=== PATIENT | female | born 1990 | race Caucasian/White ===

== ENCOUNTER 2018-10-09 19:16 | Emergency (ER) | payer BC ==
[~2018-10-09 19:16] MED LIST: Iopamidol 370 76% 100 ML VIAL ONE
[2018-10-09 19:48] LABS: #Eosinphils 0.2 thou/uL (0.0-0.7); #Lymphocytes 2.9 thou/uL (1.20-3.40); #Monocytes 1.3 thou/uL (0.11-0.59); #Neutrophils 14.2 thou/uL (1.40-6.50); %Basophils 0.2 % (0.0-1.0); %Eosinophils 1.2 % (0.0-10.0); %Lymphocytes 15.7 % (21.0-51.0); %Monocytes 6.9 % (0.0-10.0); Hemoglobin 15.6 g/dL (12.0-16.0); Mean Corpuscular HGB CONC 33.5 g/dL (32.0-36.0); Mean Corpuscular Hemoglobin 30.4 pg (27.0-31.0); Mean Corpuscular Volume 90.8 fL (78.0-98.0); Mean Platelet Volume 7.7 fL (7.4-10.4); Platelet Count 328 thou/uL (130-400); RBC Distribution Width 11.5 % (11.5-14.5); Red Blood Cell (RBC) Count 5.12 mill/uL (4.20-5.40); White Blood Cell (WBC) Count 18.6 thou/uL (4.8-10.8)
[2018-10-09 20:10] LABS: ALT (SGPT) 14 U/L (8-55); AST (SGOT) 12 U/L (5-34); Albumin 4.5 g/dL (3.5-5.0); Alkaline Phosphatase 74 U/L (40-150); Anion Gap 15 mmol/L (10-20); BUN (Urea Nitrogen) 9 mg/dL (7.0-18.7); Calc. Creatinine Clearance 0 mL/min (70-130); Carbon Dioxide 20 mmol/L (22-29); Chloride 103 mmol/L (98-107); Estimated GFR-MDRD Greater than 90; Globulin 3.4 g/dL (2.4-3.5); Glucose 97 mg/dL (70-105); Lipase 9 U/L (8-78); Potassium 3.8 mmol/L (3.5-5.1); Protein, Total 7.9 g/dL (6.0-8.3); Sodium 134 mmol/L (136-145)
[2018-10-09] MEDS ORDERED: Morphine 4 MG/ML VIAL ONE (21:09)
[2018-10-09] MEDS ORDERED: Ondansetron PF 4 MG/2 ML Vial ONE (21:09)
[2018-10-09 21:17] LABS: BHCG - Serum Negative (NEGATIVE); Pregs Control Background? CLEAR/WHITE (CLR/WHITE); Pregs Control Bar Appear? YES (CONTROL BAR)
[2018-10-09 21:48] LABS: Pregnancy Test - Urine (BHCG) Negative (Negative)
[2018-10-09 21:49] LABS: Pregu Control Background? CLEAR/WHITE (CLR/WHITE); Pregu Control Bar Appear? YES (CONTROL BAR)
[2018-10-09 21:53] LABS: Bilirubin Negative (Negative); Blood, Urine 2+ (Negative); Clarity Clear (Clear); Glucose, Urine (Dipstick) Normal (Negative); Leukocyte 250 Leu/uL (Negative); Mucous/LPF 4+ LPF (<2+); Nitrite Negative (Negative); Protein, Urine (Dipstick) 20 mg/dL (Neg-Trace); Urobilinogen Normal mg/dL (Less than 2); WBC/HPF 21-50 HPF (0-3)
[2018-10-09 21:54] LABS: Specific Gravity 1.025 (1.002-1.036)
[2018-10-09 22:01] LABS: Bacteria/HPF 2+ HPF (None Seen)
--- NOTE | 2018-10-09 22:07 | CT ---
EXAM: CT abdomen and pelvis with IV contrast PROVIDED CLINICAL HISTORY: Abdominal pain COMPARISON: 02/12/2014 FINDINGS: The visualized lung bases are free of significant opacity. The solid abdominal organs demonstrate an unremarkable CT appearance. There is no bowel dilatation, inflammatory fat stranding, free fluid or free air apparent. There is n o evidence for appendicitis. Intrauterine device is noted centrally within the uterus. No regional lymph node enlargement apparent. The regional major vascular structures appear unremarkab le. The osseous structures demonstrate no concerning lytic or blastic lesions. IMPRESSION: No evidence for an acute process.
[2018-10-09] MEDS ORDERED: cefTRIAXone\\ROCEPHIN 1 GM VIAL ONE (22:20)
[2018-10-09] MEDS ORDERED: Sodium Chloride 0.9% 100 ML ONE (22:24)
== END 2018-10-09 23:33 | disposition home or self-care (01) ==
LOC: ERS 19:16
DX: N39.0 Urinary tract infection, site not specified (principal); R10.31 Right lower quadrant pain
CPT/HCPCS: 36415; 74177; 80053; 81003; 81015; 81025; 83690; 84703; 85025; 87086; 96361; 96365; 96375; J0696; J2270; J2405; J3490; Q9967